=== PATIENT | male | born 1945 | race Caucasian/White ===

== ENCOUNTER 2021-07-03 10:55 | Emergency (ER) | payer MEDICARE, SELFPAY ==
--- NOTE | ~2021-07-03 | XR_ITS ---
EXAMINATION: XR hip LT 2V w AP pelvis INDICATION: Pain after fall TECHNIQUE: AP view the pelvis and two views of the left hip are obtained. COMPARISON: None available FINDINGS: Bone alignment is normal. There is mild osteoarthritis of the hips. No fracture is identifi ed. Phleboliths are noted in the pelvis. There is soft tissue swelling overlying the left hip. Calcif ied atherosclerosis is noted. IMPRESSION: 1. Soft tissue swelling and possible hematoma overlying the left hip without acute osseous abnormalit y. Reviewed, dictated and finalized at location B. IMPRESSION: 1. Soft tissue swelling and possible hematoma overlying the left hip without ac manuela osseous abnormality.
[2021-07-03 11:03] VITALS: BP 154/73; PULSE 88; RESP 16; TEMP 36.6; O2SAT 100
--- NOTE | 2021-07-03 11:09 | ED.LOWEXIN ---
HPI - Extremity Injury (Lower) General Chief Complaint: Extremity Injury, Lower Stated Complaint: hip injury Time Seen by Provider: 07/03/21 11:00 Source: patient and RN notes reviewed History of Present Illness HPI Narrative: Patient 75-year-old male who presents the urgent care with complaints of left hip pain. Patient states that he fell while getting off the [employer] link last night. Patient states he then proceeded to work the entire time at the [employer]. States that he did go to the [facility] and they did bandage up his abrasions to the left leg and left elbow. Patient states he has had increased pain overnight with a large bruise to the left hip. Patient has taken naproxen and used ice. Patient ambulated into the facility with the use of a walker. Denies hitting his head or any loss of consciousness during the incident. No other acute complaints. No acute distress noted. Patient aware of the plan of care. Some parts of this dictation were generated by voice recognition software and may contain typographical and/or grammatical inaccuracies. Related Data Home Medications Medication Instructions Recorded Confirmed albuterol sulfate INHALATION 07/03/21 amlodipine 07/03/21 budesonide-formoterol [Symbicort] INHALATION 07/03/21 nebivolol [Bystolic] mg 07/03/21 Allergies Allergy/AdvReac Type Severity Reaction Status Date / Time EYE DROP Allergy Other Uncoded 07/03/21 11:03 Review of Systems Review of Systems: CONSTITUTIONAL: Denies fever, chills, or sweats. EYES: Denies visual changes, redness, or discharge. ENT: Denies rhinorrhea, congestion, sore throat, or otalgia. CARDIOVASCULAR: Denies chest pain, palpitations, or edema. RESPIRATORY: Denies cough or dyspnea. GASTROINTESTINAL: Denies abdominal pain, nausea, vomiting, or diarrhea. GENITOURINARY: Denies dysuria or hematuria. SKIN: Reports of abrasions to the left lower extremity, left elbow and a large bruise to the left hip MUSCULOSKELETAL: Reports of left hip pain NEUROLOGIC: Denies headache, numbness, or weakness. All other systems reviewed are negative, except as documented in HPI. PMFSH Comments At the time of my signature, I reviewed and agree with the nursing past medical, surgical, social, and family history. There is no relevant family history pertinent to the patient complaint. Exam Narrative: GENERAL: This is a well-nourished, well-developed patient, in no apparent distress. HEAD: normocephalic, atraumatic. EYES: PERRL. Sclera clear/white. Vision is grossly intact. EARS: External ears normal NOSE: External nose normal with no obvious nasal discharge, nares without redness, no rhinorrhea. THROAT: Mucous membranes moist NECK: Neck supple CARDIOVASCULAR: Regular rate and rhythm without murmurs, gallops, or rubs. RESPIRATORY: Clear to auscultation. Breath sounds equal bilaterally. No wheezes, rales, or rhonchi. SKIN: 2 x 2 centimeter abrasion to the right kneecap, 2 x 2 centimeter abrasion to the right lateral lower leg NEURO: awake, alert, and oriented to person, place and time. There were no obvious focal neurologic abnormalities. EXTREMITIES: Lateral upper thigh/right hip swelling measuring approximately 14 inches x 10 inches and firmness (hematoma) with scattered centering ecchymosis measuring at 9 x 9 inches. Mild to moderate tenderness to the anterior right hip and lateral right hip. Positive strong right pedal pulse with capillary refill less than 2 seconds. No shortening to the right lower extremity. Range of motion to right hip limited due to pain Course Vital Signs Vital signs: Vital Signs Temperature 97.8 F 07/03/21 11:03 Pulse Rate 88 07/03/21 11:03 Respiratory Rate 16 07/03/21 11:03 Blood Pressure 154/73 H 07/03/21 11:03 Pulse Oximetry 100 07/03/21 11:03 Temperature 97.8 F 07/03/21 11:03 Pulse Rate 88 07/03/21 11:03 Respiratory Rate 16 07/03/21 11:03 Blood Pressure 154/73 H 07/03/21 11:
== END 2021-07-03 11:46 | disposition home or self-care (01) ==
PROVIDERS: Emergency Provider Nurse Practitioner Family; PCP Internal Medicine
DX: S70.01XA Contusion of right hip, initial encounter (principal); V48.4XXA Person boarding or alighting a car injured in noncollision transport accident, initial encounter; I10 Essential (primary) hypertension; Z98.42 Cataract extraction status, left eye; Z98.41 Cataract extraction status, right eye
CPT/HCPCS: 73502; 99213; G0463